=== PATIENT | female | born 1980 | race Caucasian/White ===

== ENCOUNTER 2017-09-20 04:06 | Emergency (ER) | payer MEDICAID, OTHER ==
[~2017-09-20] VITALS: Ht 157.5 cm; Wt 78.0 kg
[~2017-09-20 04:06] MED LIST: CIPR-260 PO; NITR100C6 PO; PHEN-873 PO
[2017-09-20 04:10] VITALS: BP 154/97
[2017-09-20] MEDS ORDERED: HYDR-3965 PO (04:44)
[2017-09-20] MEDS ORDERED: ibuprofen tablet 400 MG TABLET PO ONE (04:45)
[2017-09-20] MEDS ORDERED: acetaminophen 325mg tablet PO ONE (04:45)
== END 2017-09-20 05:10 | disposition home or self-care (01) ==
LOC: ER 04:07
DX: M25.531 Pain in right wrist (principal); M79.89 Other specified soft tissue disorders; R20.2 Paresthesia of skin; G43.909 Migraine, unspecified, not intractable, without status migrainosus; Z88.2 Allergy status to sulfonamides; Z79.899 Other long term (current) drug therapy; W18.39XA Other fall on same level, initial encounter; Y93.89 Activity, other specified; Y92.89 Other specified places as the place of occurrence of the external cause; Y99.8 Other external cause status
CPT/HCPCS: 29125; 73110; 99284

== ENCOUNTER 2018-02-13 03:30 | Emergency (ER) | payer OTHER ==
[~2018-02-13] VITALS: Ht 160 cm; Wt 66.0 kg
[~2018-02-13 03:30] MED LIST changes: +PHEN-786 PO; -PHEN-873 PO
[2018-02-13 03:34] VITALS: BP 143/93
[2018-02-13] MEDS ORDERED: VIG0.5OS LEFTEYE (03:46)
[2018-02-13] MEDS ORDERED: moxifloxacin 0.5% ophthalmic drops 3ml LEFTEYE SCH (03:50)
== END 2018-02-13 04:08 | disposition home or self-care (01) ==
LOC: ER 03:31
DX: H10.9 Unspecified conjunctivitis (principal); Z98.890 Other specified postprocedural states; Z88.2 Allergy status to sulfonamides; Z79.2 Long term (current) use of antibiotics; Z79.899 Other long term (current) drug therapy
CPT/HCPCS: 99283

== ENCOUNTER 2020-08-02 16:38 | Emergency (ER) | payer SELFPAY | END 2020-08-02 17:52 | disposition left against medical advice (07) | LOC: ER 16:38 | DX: N39.0 Urinary tract infection, site not specified (principal); Z53.21 Procedure and treatment not carried out due to patient leaving prior to being seen by health care provider ==

== ENCOUNTER 2023-10-11 00:29 | Emergency (ER) | payer OTHER ==
[~2023-10-11] VITALS: Ht 157.5 cm; Wt 72.0 kg
[2023-10-11] MEDS ORDERED: CEPH-585 PO (01:11)
[2023-10-11 01:51] LABS: CLARITY,URINE CLOUDY (Clear); COLOR,URINE RED (Yellow); UA COLLECTION TYPE CLN CATCH MIDSTREAM
[2023-10-11 01:52] LABS: URINE HCG NEGATIVE (NEG)
[2023-10-11] MEDS: cephalexin 250mg capsule PO ONE (02:02)
[2023-10-11] MEDS: phenazopyridine 100mg tablet PO ONE (02:02)
[2023-10-11] MEDS: ketorolac trometh. 30mg/ml inj. IM ONE (02:04)
[2023-10-11 02:10] LABS: RBC,URINE TNTC /HPF (0-2)
[2023-10-11 02:11] VITALS: BP 132/87; PULSE 107; RESP 20; TEMP 98.3; O2SAT 99
[2023-10-11 02:11] LABS: SQUAMOUS EPITHELIAL CELL,UR MODERATE /LPF (FEW)
[2023-10-11 02:12] LABS: BACTERIA,URINE 1+ /HPF (Neg); WBC,URINE TNTC /HPF (0-4)
== END 2023-10-11 02:15 | disposition home or self-care (01) ==
LOC: ER 00:30
DX: N39.0 Urinary tract infection, site not specified (principal); G43.909 Migraine, unspecified, not intractable, without status migrainosus; Z98.890 Other specified postprocedural states; Z72.89 Other problems related to lifestyle; Z88.2 Allergy status to sulfonamides; Z79.2 Long term (current) use of antibiotics; Z79.899 Other long term (current) drug therapy
CPT/HCPCS: 81001; 81025; 87088; 87186; 96372; 99283; J1885